=== PATIENT | female | born 1950 | race Caucasian/White ===

== ENCOUNTER → 2018-03-22 | Day surgery (SDC) | payer MEDICARE ==
--- NOTE | 2018-03-13 07:27 | HP ---
CC: Matty Storey NP * PREOPERATIVE HISTORY AND PHYSICAL: DATE OF ADMISSION: 03/22/18 This patient is scheduled for same-day surgery admission by Dr. Massey on Sunday , 03/22/18. DATE OF PREOPERATIVE HISTORY AND PHYSICAL EXAMINATION: 03/12/18. ATTENDING SURGEON: Dr. Kelsey Massey * (dictated by Deirdre Jacobo NP) CHIEF COMPLAINT: Right breast cancer. HISTORY OF PRESENT ILLNESS: The patient is a 67-year-old female recently evaluated by Dr. Massey for right breast cancer. She went for a routine mammogram, which revealed a right breast nodule with architectural distortion at the 9 o'clock position. She had an ultrasound-guided biopsy on 02/22/18, which revealed invasive ductal adenocarcinoma, ER/OH positive, HER2 negative. She then saw her primary care provider, who referred her to Dr. Massey. The patient denies any breast pain or nipple discharge. She denies any family history of breast cancer. Menarche was at age 10; she had hysterectomy at age 38 and had 1 ovary left in. She went through menopause in her mid 40s based on symptoms of hot flashes. In the past, she used both oral contraceptives and hormone replacement therapy for several years, but is not on any hormone replacement at this time. She has never had previous breast biopsy. She has never had radiation to the chest and she does not have any relatives with a history of ovarian cancer. Dr. Massey examined the patient and has recommended mammo-guided needle localization excision of the right breast cancer and sentinel lymph node biopsy as a same-day surgery procedure; she described the nature of the surgical procedure, the rationale for the procedure, the relevant risks and benefits, and today I reviewed the expected postoperative care and recovery. The patient has had a chance to ask questions and stated that she understands the information and is satisfied with the answers given to her questions. She will sign surgical consent on the day of surgery. PAST MEDICAL HISTORY: Significant for hypertension, hyperlipidemia, and asthma. PAST SURGICAL HISTORY: Hysterectomy with 1 ovary left, 1988; tonsillectomy in the 1949s. OB HISTORY: 1, para 0, missed 1. MEDICATIONS: 1. Benazepril 20 mg p.o. daily. 2. Spiriva 1.25 mcg per actuation 2 puffs daily. 3. Symbicort 160/4.5 mcg per actuation 2 puffs b.i.d. 4. Fluticasone 50 mcg per actuation 2 sprays each nostril daily as needed. 5. Montelukast 10 mg p.o. daily. 6. Zyrtec 10 mg p.o. daily. 7. Ventolin inhaler 2 puffs four times a day p.r.n. ALLERGIES: No known drug allergies. FAMILY HISTORY: No known breast cancer or ovarian cancer; no anesthesia complications, bleeding tendencies, or clotting disorders. SOCIAL HISTORY: She is . She exercises routinely with water aerobics. She has never been a smoker. She drinks 1 alcoholic beverage per day. She denies use of other substances. Her brother and [id number] will be with her on the day of surgery. REVIEW OF SYSTEMS: Constitutional: No fevers or chills. No excessive fatigue. Endocrine: No diabetes or thyroid disease. Hematologic: No easy bruising or bleeding. No previous blood transfusions. Respiratory: No dyspnea on exertion. No chronic cough. Cardiovascular: No anginal chest pain or palpitations. Gastrointestinal: No nausea, vomiting, diarrhea, GI bleeding, or constipation. No change in bowel habits. No heartburn. Genitourinary: No dysuria. Musculoskeletal: No back pain or joint pain. Neurologic: No headache or blurred vision or areas of focal weakness or numbness. General: No previous anesthesia complications. No previous history of deep vein thrombosis or pulmonary embolism. PHYSICAL EXAMINATION GENERAL SURVEY: The patient is a 67-year-old, overweight female, in no acute distress. VITAL SIGNS: Height 61 inches, weight 180 pounds, body mass index 34. Blood pressure 128/74, pulse 76 and regular, respiratory rate 16, temperature 98.5 tympanic. HEENT: Benign. NECK: Supple. No cervical lymphadenopathy. No supraclavicular lymphadenopathy. BREASTS: Symmetrical. On the right breast, there is hemangioma in the superior aspect that the patient states has been there since puberty; in the lateral right breast, at the previous biopsy site, there is no erythema or other signs of infection; palpation revealed some thickening of the lateral right breast; otherwise, there are no discrete masses in either breast. Nipples are normal bilaterally. No axillary lymphadenopathy. LUNGS: Breath sounds bilaterally clear and equal. HEART: Regular rate and rhythm. No murmurs or rubs appreciated. ABDOMEN: Active bowel sounds. Soft, nondistended, nontender throughout. No obvious masses, organomegaly, or evidence of umbilical or incisional hernia. There is a well-healed surgical scar in the midline of the lower abdomen. PELVIC: Exam is deferred. RECTAL: Exam is deferred. EXTREMITIES: Warm without edema or skin ulcerations. NEUROLOGIC: Alert and oriented x3. Steady gait. SKIN: Warm, dry, intact. IMPRESSION: Right breast cancer. PLAN: Same-day surgery admission to Dr. Massey's service on 03/22/18, for mammo-guided needle localization excision of right breast cancer and sentinel lymph node biopsy. TOYIN JACOBO, INSTRUCTOR PROGRAMMABLE CONTR[employer]LLERS [id number]/[facility] #: [id number] MTDNolan
[~2018-03-22] MED LIST: Acetaminophen TAB* 325 MG ONE; Acetaminophen TAB* 325 MG PO PRN; Buffered Lidocaine 0.9% SYRIN* 5 ML/SYR SYRINGE INTRADERM ONE; Bupivacaine 0.5% PF 10 ML VIAL INJ ONE; Dexamethasone IV* 4 MG/ML 1 ML (4 MG) ONE; DiMENhydriNATE IV* 50 MG/ML VIAL IV PUSH PRN; DiMENhydriNATE IV* 50 MG/ML VIAL ONE; Famotidine IV* 10 MG/ML 2 ML (20 mg) IV ONE; Famotidine IV* 10 MG/ML 2 ML (20 mg) ONE; HYDROcodone/ACETAMIN 5-325 MG* 1 TAB PO PRN; HYDROmorphone INJ* 1 MG/ML CARPUJECT SYRINGE IV PRN; Heparin VIAL(*) 5000 UNITS/ML VIAL (FIVE THOUSAND) ONE; Ketorolac INJ* 30 MG/ML 1 ML VIAL ONE; Lidocaine 1% INJ* 10 MG/ML 30 ML SDV ONE; Lidocaine 1% MPF wEPI 200,000* 30 ML SDV ONE; Lidocaine 2% PF * 5 ML VIAL ONE; Lidocaine 2.5%/Prilocain 2.5%* 5 GM TUBE ONE; Midazolam* 1 MG/ML 5 ML VIAL (5 MG) ONE; Naloxone* 0.4 MG/ML 1 ML VIAL IV PRN; Propofol* 10 MG/ML 20 ML BTL IV PUSH ONE; ceFAZolin 2 GM PREMIX (*) 2 GM/50 ML BAG IVPB ONE; fentaNYL* 50 MCG/ML 2 ML VIAL (100 MCG VIAL) ONE
--- NOTE | 2018-03-22 13:53 | RAD ---
Indication: Invasive ductal carcinoma. Informed consent was obtained from the patient. Using a lateral approach the radiopaque marker was localized with a 5 cm needle. A Kopan's wire was then placed adjacent to the radiopaque marker. Craniocaudal view demonstrates wire in the expected location. A specimen radiograph demonstrates the localized clip to be within the specimen. IMPRESSION: Successful mammographically guided localization of a surgical clip right breast at approximately 9:00 position.
--- NOTE | 2018-03-22 13:55 | RAD ---
Indication: Invasive ductal carcinoma right breast. Intradermal injection 0.3 mCi of technetium 99m sulfur colloid was injected surrounding the upper outer quadrant of the right areola. The sentinel node was localized. The localized area was then marked with indelible marker. IMPRESSION: SUCCESSFUL LOCALIZATION OF SENTINEL NODES IN THE RIGHT AXILLA.
--- NOTE | 2018-03-22 14:18 | BRIEFOPN ---
Brief Operative Note - Surgery Procedures: Procedures CLOSED ENDOSCOPIC BIOPSY OF LARGE INTESTINE (06/23/13) COLONOSCOPY (07/21/02) OTHER RESP PROCEDURES (11/28/94) 03/22/18 Op Note Pre-op Dx: Right Breast Cancer Post-op Dx: same Procedure: needle localizaiton excision of right breast cancer and sentinel lymph node biopsy. Surgeon: Bryson Asst: None Anesth: General EBL: 10cc Complications: none SCDs on during surgery Abx: given pre-op Pt. tolerated procedure well and was transferred to in a stable condition. CLFoster
[2018-03-22 15:16] VITALS: BP 172/88
--- NOTE | 2018-03-23 07:15 | OP ---
CC: [facility]; Matty Storey NP OPERATIVE REPORT: DATE OF OPERATION: 03/22/18 DATE OF : 46 SURGEON: Kelsey Massey MD NEWS PRODUCTION ASSISTANT: There was no assistant family teacher for this case. PRE-OP DIAGNOSIS: Right breast cancer. POST-OP DIAGNOSIS: Right breast cancer. OPERATIVE PROCEDURE: Needle localization and excision of right breast cancer and sentinel lymph node biopsy. INDICATIONS: Ms. Dyer is a 67-year-old woman, who presented to the office with recently diagnosed breast cancer prompting the plan for surgical intervention. On the morning of surgery, she underwent needle localization and sentinel lymph node localization without difficulty. DESCRIPTION OF PROCEDURE: She was then brought to the operating room. She was placed on the OR tabl e in the supine position and given general anesthesia. The right breast and axilla were prepped and draped in the usual sterile fashion taking care not to dislodge the localizing wire. After infiltrat ing with local anesthetic, a curvilinear elliptical incision encompassing the wire was made. Subcutan eous tissue was divided with electrocautery to completely excise the mass of tissue from around the w pedro. This was marked in the usual fashion and handed off as a specimen. The report eventually came back from Radiology that this specimen contained the abnormality. Meanwhile, hemostasis was achieved with electrocautery. It turned out that the breast excision site was close to the axillary site, so the decision was made to access the sentinel lymph node from the breast incision. Using electrocaut fabio, subcutaneous fat of the axilla was divided until the axillary fat pad was encountered. Then, e navigator helped locate the sentinel lymph node. In situ counts were around 4200 and then using sh lauren and blunt dissection, the sentinel node was excised from the axilla using clips to control small lymphatic and blood vessels that approached the gland. Once it was out, its ex vivo counts were [facility] ked and noted to be around 5300. The axillary bed counts were 10. The sentinel node was handed off. The wound was inspected for hemostasis, which appeared to be adequate and then the breast cavity wa s marked with clips. Additional local was instilled into the cavity and then closure was accomplishe d with 3-0 Vicryl to reapproximate the subcutaneous tissue and the skin was closed with 4-0 Prolene i n a subcuticular fashion. Steri-Strips and a dry sterile dressing were applied. All sponge and inst rument counts were correct. The patient tolerated the procedure well and was transferred to Recovery in a stable condition. [id number]/[facility] #: [id number]
== END | disposition home or self-care (01) ==
LOC: SDS 06:59
PROVIDERS: ATTEND Surgery
DX: C50.911 Malignant neoplasm of unspecified site of right female breast (principal); I10 Essential (primary) hypertension; J45.909 Unspecified asthma, uncomplicated; F41.8 Other specified anxiety disorders; E66.9 Obesity, unspecified
CPT/HCPCS: 78195; 88307; 88342; A9270-GY; A9541; J0690; J1100; J1240; J1644; J1885; J2001; J2250; J2704; J3010

== ENCOUNTER 2018-10-30 17:50 | Emergency (ER) | payer MEDICARE, OTHER ==
[2018-10-30] MEDS ORDERED: Acetaminophen TAB* 325 MG PO ONE (19:05)
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
[2018-10-30] MEDS ORDERED: levETIRAcetam IV* 1,000 MG in NS 0.9% 100 ML* 100 ML IVPB ONE (21:48)
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
[2018-10-30 22:21] LABS: Hematocrit 40 % (35-47); Mean Corpuscular HGB Conc 33 g/dl (31-36); Mean Corpuscular Hemoglobin 28 pg (27-31); Mean Corpuscular Volume 84 fL (80-97); Mean Platelet Volume 7.5 fL (7.4-10.4); Platelet Count 358 10^3/ul (150-450); Red Blood Count 4.71 10^6/ul (4.00-5.40); Red Cell Distribution Width 15 % (10.5-15); White Blood Count 15.1 10^3/ul (3.5-10.8)
[2018-10-30 22:37] LABS: Albumin 3.9 g/dL (3.2-5.2); Albumin/Globulin Ratio 1.5 (1-3); EGFR Non-African American 93.4 (>60); Globulin 2.6 g/dL (2-4); Potassium 3.9 mmol/L (3.5-5.0); Total Bilirubin 0.4 mg/dL (0.2-1.0); Total Protein 6.5 g/dL (6.4-8.9)
[2018-10-30] MEDS ORDERED: Iohexol 300* (CONTRAST) 10 ML SDV IV ONE (22:42)
[2018-10-30] MEDS ORDERED: Ondansetron INJ* 2 MG/ML VIAL IV ONE (23:45)
[2018-10-30] MEDS ORDERED: Morphine VIAL* 10 MG/ML 1 ML VIAL IV ONE (23:45)
[2018-10-30] MEDS ORDERED: Morphine VIAL* 4 MG/ML VIAL (1 ml vial) ONE (23:49)
[2018-10-30] MEDS ORDERED: Morphine VIAL* 4 MG/ML VIAL (1 ml vial) IV ONE (23:51)
[2018-10-30 23:55] VITALS: BP 159/84
== END 2018-10-30 23:06 | disposition short-term general hospital (02) ==
LOC: ED 17:50
DX: I60.9 Nontraumatic subarachnoid hemorrhage, unspecified (principal); E04.1 Nontoxic single thyroid nodule; T14.90XA Injury, unspecified, initial encounter; I10 Essential (primary) hypertension; J45.909 Unspecified asthma, uncomplicated; K21.9 Gastro-esophageal reflux disease without esophagitis; Z85.3 Personal history of malignant neoplasm of breast; V43.52XA Car driver injured in collision with other type car in traffic accident, initial encounter; Y92.410 Unspecified street and highway as the place of occurrence of the external cause
CPT/HCPCS: 36415; 70450; 70486; 71045; 72125; 80053; 85027; 93005; 96374; 96375; 96376; 99285; A9270-GY; J2270; J2405

== ENCOUNTER 2018-11-01 14:51 | Emergency (ER) | payer OTHER ==
[2018-11-01 18:43] LABS: Hematocrit 37 % (35-47); Hemoglobin 12.3 g/dl (12.0-16.0); Mean Corpuscular HGB Conc 34 g/dl (31-36); Mean Corpuscular Hemoglobin 28 pg (27-31); Mean Corpuscular Volume 84 fL (80-97); Mean Platelet Volume 7.5 fL (7.4-10.4); Platelet Count 331 10^3/ul (150-450); Red Blood Count 4.39 10^6/ul (4.00-5.40); Red Cell Distribution Width 15 % (10.5-15)
[2018-11-01] MEDS: Metoclopramide IV* 5 MG/ML 2 ML VIAL IV SLOW PU ONE (18:53)
[2018-11-01] MEDS: NS 0.9% 1000 ML* 1,000 ML IV ONE (18:54)
[2018-11-01 19:03] LABS: Albumin 3.7 g/dL (3.2-5.2); Albumin/Globulin Ratio 1.4 (1-3); Calcium 8.9 mg/dL (8.6-10.3); EGFR Non-African American 93.4 (>60); Globulin 2.7 g/dL (2-4); Potassium 3.6 mmol/L (3.5-5.0); Total Bilirubin 0.4 mg/dL (0.2-1.0); Total Protein 6.4 g/dL (6.4-8.9)
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
[2018-11-01 21:20] VITALS: BP 188/84
== END 2018-11-01 21:15 | disposition home or self-care (01) ==
LOC: ED 14:51
DX: S06.0X9A Concussion with loss of consciousness of unspecified duration, initial encounter (principal); V43.92XA Unspecified car occupant injured in collision with other type car in traffic accident, initial encounter; Y92.410 Unspecified street and highway as the place of occurrence of the external cause; I10 Essential (primary) hypertension
CPT/HCPCS: 36415; 70450; 80053; 85027; 96361; 96374; 99284; J2765

== ENCOUNTER 2019-05-25 02:06 | Observation (INO) | payer MEDICARE, OTHER ==
--- NOTE | 2019-05-25 02:37 | ED ---
HPI Chest Pain - HPI Summary HPI Summary: This is a 68-year-old woman who lives by herself who was well all day. When she went to bed she felt fine but as she was drifting off to sleep she had the abrupt onset of a pressure-like pain in her mid chest that she felt shooting through to her back. She did not have any associated symptoms such as nausea, dizziness, lightheadedness, sweatiness, or shortness of breath. She took some aspirin and some Tums and this seemed to help the chest discomfort although she has some residual discomfort remaining in her back. There has been no abdominal pain. She has a history of treated hypertension, but no other cardiac risk factors. - History of Current Complaint Chief Complaint: EDChestPainROMI Time Seen by Provider: 05/25/19 02:16 Pain Intensity: 2 - Allergy/Home Medications Allergies/Adverse Reactions: Allergies Allergy/AdvReac Type Severity Reaction Status Date / Time No Known Allergies Allergy Verified 11/01/18 14:58 PMH/Surg Hx/FS Hx/Imm Hx Endocrine/Hematology History: Reports: Hx Anemia - r/t prior menstrual problems at age 39 Cardiovascular History: Reports: Hx Hypertension - on meds pt. states controlled Respiratory History: Reports: Hx Asthma - on meds, Other Respiratory Problems/ Disorders - is seeing an asthsma specialist currently to [id number] exercise tolerande GI History: Reports: Hx Gastroesophageal Reflux Disease - uses tumms as needed Musculoskeletal History: Denies: Hx Rheumatoid Arthritis, Hx Osteoporosis Sensory History: Reports: Hx Cataracts - beginning in bilat eyes not surgery, Hx Contacts or Glasses Denies: Hx Hearing Aid Opthamlomology History: Reports: Hx Cataracts - beginning in bilat eyes not surgery, Hx Contacts or Glasses Psychiatric History: Reports: Hx Anxiety - r/t ca dx, Hx Depression - r/t husbands recent (5 months ago) - Cancer History Cancer Type, Location and Year: right breast CA Hx Chemotherapy: No Hx Radiation Therapy: Yes - Surgical History Surgery Procedure, Year, and Place: total hysterectomy 1988 retained one ovary. T AND A 1951. LIPOMA REMOVED 2005 IN OFFICE Hx Anesthesia Reactions: No - Immunization History Immunizations Up to Date: Yes Infectious Disease History: No Infectious Disease History: Denies: Traveled Outside the [place] in Last 30 Days - Family History Known Family History: Positive: Non-Contributory - Social History Alcohol Use: Daily Alcohol Amount: 1 Substance Use Type: Reports: None Smoking Status (MU): Never Smoked Tobacco Have You Smoked in the Last Year: No Review of Systems Constitutional: Negative Eyes: Negative Positive: Chest Pain. Negative: Palpitations Negative: Shortness Of Breath Negative: Abdominal Pain, Vomiting All Other Systems Reviewed And Are Negative: Yes Physical Exam - Summary Physical Exam Summary: General: This is a well-developed, well- nourished morbidly obese woman lying on the stretcher in no apparent distress. The patient does not appear ill or toxic. HEENT:Extraocular movements are intact. Conjunctiva are normal without pallor. Pharynx is clear without exudate or swelling. Dentition is unremarkable. There is no sign of head trauma. Neck: Supple, no adenopathy noted. Lungs: Lungs are clear to auscultation. There are no signs of respiratory distress. Coronary: Peripheral perfusion is good. Heart sounds are regular, a normal S1 and S2 were auscultated. There is no gallop rhythm, nor any pathological sounded murmurs. Abdomen: The abdomen appears obese but otherwise normal and is nondistended. Normoactive bowel sounds are present. On palpation, there is no significant tenderness, nor any guarding or rebound. There is no hepatosplenomegaly, nor any masses. Genitourinary: Deferred Back: Good range of motion is observed. There are no surface abnormalities nor any scoliosis. Extremities: Good range of motion was observed in all 4 extremities. There is no sign of any trauma to the extremities. Neurologic: The patient is awake and alert, speech is fluent in conversation is appropriate. There are no focal motor abnormalities. Cranial nerves are grossly intact. Deep tendon reflexes are 2+ and symmetric. There is no ataxia observed. Psychiatric. The patients affect is felt to be normal and appropriate. Vital Signs On Initial Exam: Initial Vitals Temp Pulse Resp BP Pulse Ox 36.6 C 61 13 170/88 95 05/25/19 02:07 05/25/19 02:07 05/25/19 02:07 05/25/19 02:07 05/25/19 02:07 Diagnostics - Vital Signs Vital Signs Temp Pulse Resp BP Pulse Ox 05/25/19 02:07 36.6 C 61 13 170/88 95 - Laboratory Result Diagrams: 05/25/19 03:47 05/25/19 03:47 Lab Statement: Any lab studies that have been ordered have been reviewed, and results considered in the medical decision making process. - Radiology CXR Radiology Interpretation Completed By: ED Physician Summary of Radiographic Findings: No acute processes, pending official radiology report. - EKG 0209 Cardiac Rate: NL - 61 BPM EKG Rhythm: Sinus Rhythm Summary of EKG Findings: EKG at 0209 revealed NSR at 61 BPM, Q wave in III, AvF. 0349 Cardiac Rate: NL - 63 BPM EKG Rhythm: Sinus Rhythm Summary of EKG Findings: NSR at 63 BPM with inferior Q waves. Re-Evaluation - Re-Evaluation First Eval Re-Evaluation Time: 06:36 Comment: Discussed results with patient. Patient will be admitted to [facility] with dx of chest pain, unstable angina. Patient understands and agrees with this plan. Chest Pain Course/Dx - Course Course Of Treatment: This patient is a 68 year old F presenting to ED with a chief complaint of chest pain. EKG at 0209 revealed NSR at 61 BPM, Q wave in III , AvF. EKG at 0349 revealed NSR at 63 BPM with inferior Q waves. CXR revealed no acute processes, pending official radiology report. Discussed patient case with Dr. Tang, hospitalist, who accepted the patient for admission to [facility]. Patient will be admitted to [facility] with dx of chest pain, unstable angina. Patient understands and agrees with this plan. - Diagnoses Provider Diagnoses: Chest pain, Unstable angina - Provider Notifications Discussed Care Of Patient With: Yaa Tang Time Discussed With Above Provider: 06:33 Instructed by Provider To: Admit As Inpatient - Discussed patient case with Dr. Tang, hospitalist, who accepted the patient for admission to [facility]. Discharge - Sign-Out/Discharge Documenting (check all that apply): Patient Departure - Discharge Patient Received Moderate/Deep Sedation with Procedure: No - Discharge Plan Condition: Fair Disposition: ADMITTED TO [facility] Referrals: aMtty Storey, COMPREHENSIVE OPHTHALMOLOGIST [Primary Care Provider] - - Attestation Statements Document Initiated by Scribe: Yes Documenting Scribe: Jose Guadalupe Gonzalez Provider For Whom Scribe is Documenting (Include Credential): Dino Barker MD Scribe Attestation: IJose Guadalupe, scribed for Dino Barker MD on 05/25/19 at 0645. Status of Scribe Document: Ready
[2019-05-25 03:57] LABS: ABS Eosinophils 0.7 10^3/ul (0-0.6); ABS Lymphocytes 1.8 10^3/ul (1.0-4.8); ABS Monocytes 0.7 10^3/ul (0-0.8); ABS Neutrophils 5.8 10^3/ul (1.5-7.7); Eosinophil % 7.5 %; Hematocrit 38 % (35-47); Hemoglobin 12.9 g/dL (12.0-16.0); Lymphocyte % 20.5 %; Mean Corpuscular HGB Conc 34 g/dL (31-36); Mean Corpuscular Hemoglobin 28 pg (27-31); Mean Corpuscular Volume 83 fL (80-97); Mean Platelet Volume 7.8 fL (7.4-10.4); Nucleated Red Blood Cells % 0.1; Platelet Count 326 10^3/uL (150-450); Red Blood Count 4.58 10^6 /uL (3.70-4.87); Red Cell Distribution Width 15 % (10-15)
[2019-05-25 04:31] LABS: Albumin 3.8 g/dL (3.2-5.2); Albumin/Globulin Ratio 1.5 (1-3); BUN/Creatinine Ratio 25.4 (8-20); Calcium 9.2 mg/dL (8.6-10.3); EGFR Non-African American 93.4 (>60); Globulin 2.6 g/dL (2-4); Potassium 4.1 mmol/L (3.5-5.0); Total Bilirubin 0.3 mg/dL (0.2-1.0); Total Protein 6.4 g/dL (6.4-8.9)
[2019-05-25 06:26] LABS: Troponin I 0.05 ng/mL (<0.04)
[2019-05-25] MEDS ORDERED: Iohexol 350* (CONTRAST) 500 ML MDV IV ONE (06:53)
[2019-05-25] MEDS ORDERED: Magnesium Hydroxide LIQ* 30 ML UDC PO PRN (09:02)
[2019-05-25] MEDS ORDERED: Al Hydrox/Mg Hydrox/Simet LIQ* 30 ML UDC PO PRN (09:02)
[2019-05-25] MEDS ORDERED: Acetaminophen TAB* 325 MG PO PRN (09:02)
[2019-05-25] MEDS ORDERED: Calcium Carbonate CHEW TAB* 500 MG (TUMS) PO PRN (09:05)
[2019-05-25] MEDS ORDERED: Melatonin 3 MG TAB PO PRN (09:10)
--- NOTE | 2019-05-25 10:06 | HP ---
HISTORY AND PHYSICAL: ADDENDUM: In regards to the patient's mediastinal lymphadenopathy, that needs to be followed up. The patient is recommended to follow up with Dr. Yuliet Garsia in regards to her enlarged lymph nodes in her chest. She has had no recent history of upper respiratory infection or respiratory symptoms currently. She is also recommended to follow up with her primary care provider in regards to this. [id number]/[facility] #: [id number] MTDD
[2019-05-25] MEDS: Metoprolol Tartrate TAB* 25 MG PO SCH ×2 (11:14→19:58)
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
[2019-05-25] MEDS: Heparin VIAL(*) 5000 UNITS/ML VIAL (FIVE THOUSAND) SUBCUT SCH ×3 (14:48→20:00)
[2019-05-25] MEDS: Docusate CAP* 100 MG PO SCH (19:58)
[2019-05-25] MEDS ORDERED: Montelukast Sodium TAB* 10 MG PO SCH (21:00)
[2019-05-26] MEDS: Heparin VIAL(*) 5000 UNITS/ML VIAL (FIVE THOUSAND) SUBCUT SCH ×2 (05:33→13:55)
[2019-05-26 07:06] LABS: ABS Eosinophils 0.7 10^3/ul (0-0.6); ABS Lymphocytes 1.7 10^3/ul (1.0-4.8); ABS Monocytes 0.7 10^3/ul (0-0.8); ABS Neutrophils 5.5 10^3/ul (1.5-7.7); Eosinophil % 8.2 %; Hematocrit 42 % (35-47); Hemoglobin 14.1 g/dL (12.0-16.0); Lymphocyte % 19.9 %; Mean Corpuscular HGB Conc 34 g/dL (31-36); Mean Corpuscular Hemoglobin 28 pg (27-31); Mean Corpuscular Volume 83 fL (80-97); Mean Platelet Volume 7.9 fL (7.4-10.4); Platelet Count 365 10^3/uL (150-450); Red Blood Count 5.06 10^6 /uL (3.70-4.87); Red Cell Distribution Width 15 % (10-15); White Blood Count 8.6 10^3/uL (3.5-10.8)
[2019-05-26 07:17] LABS: BUN/Creatinine Ratio 22.7 (8-20); Calcium 9.1 mg/dL (8.6-10.3); EGFR African American 107.1 (>60); EGFR Non-African American 88.5 (>60); HDL Cholesterol 69.6 mg/dL; Potassium 4.1 mmol/L (3.5-5.0)
[2019-05-26] MEDS: Albuterol HFA INHALER* 8 gm MDI INH SCH ×2 (07:33→11:12)
[2019-05-26] MEDS: Mometasone/Formoter 200/5 MDI INH SCH ×2 (07:33→12:23)
[2019-05-26] MEDS: Metoprolol Tartrate TAB* 25 MG PO SCH (07:59)
[2019-05-26] MEDS: Docusate CAP* 100 MG PO SCH (08:44)
[2019-05-26] MEDS ORDERED: Aspirin EC TAB* 325 MG PO SCH (09:00)
[2019-05-26] MEDS ORDERED: CMCS - Anastrozole (NF) 1 MG TAB PO SCH (09:00)
[2019-05-26] MEDS ORDERED: Tiotropium CAP.INH* CAP.INH/18 MCG (USE ORDER SET !) INH SCH (09:00)
[2019-05-26] MEDS ORDERED: Lisinopril TAB* 10 MG PO SCH (09:00)
[2019-05-26] MEDS ORDERED: SPIRIVA INH SCH (09:00)
[2019-05-26] MEDS ORDERED: Spiriva Inhaler DEVICE* 1 EACH DEVICE INH ONE (09:00)
[2019-05-26] MEDS ORDERED: Aspirin 81 mg CHEW TAB* 81 MG TAB.CHEW PO SCH (10:00)
[2019-05-26] MEDS ORDERED: Albuterol HFA INHALER* 8 gm MDI INH SCH (10:45)
[2019-05-26 15:15] VITALS: BP 166/85
[2019-05-26] MEDS ORDERED: Mometasone/Formoter 200/5 MDI INH SCH (21:00)
--- NOTE | 2019-05-26 22:43 | DS ---
CC: Matty Storey NP * DISCHARGE SUMMARY: DATE OF ADMISSION: 05/25/19 DATE OF DISCHARGE: 05/26/19 ATTENDING PHYSICIAN: Dr. Ramonita Quesada * (dictated by PAULA Posey). PRIMARY CARE PROVIDER: Matty Storey NP PRIMARY DIAGNOSES: 1. Hypertensive urgency. 2. Type 2 non-ST elevation myocardial infarction secondary to hypertensive urgency. 3. Hyperlipidemia. SECONDARY DIAGNOSES: 1. Hypertension. 2. History of breast cancer. 3. Asthma. STUDIES WHILE IN THE HOSPITAL: Cardiac stress test negative and termed low risk by Radiology. Chest/thorax CT angiogram on 05/25/19, impression: No pulmonary arterial filling defect to suggest PE. There is peribronchial thickening along the lower lobes bilaterally. Enlarged mediastinal lymph nodes, prominent hilar lymph nodes. 1 cm thyroid nodule. PERTINENT LAB DATA: Troponin 0.05 and then later 0.00, LDL 121. HISTORY OF PRESENT ILLNESS/HOSPITAL COURSE: Xiomara Dyer is a 68-year-old white female with past medical history significant for hypertension, history of breast cancer and asthma, who presented to the emergency department due to chest pain on 05/25/19. Please see admission history and physical dictated by Dr. Marisela Martinez for further information. During her hospital stay, she initially had a negative troponin, but then had a mildly elevated troponin to 0.05 and then returned back down to 0.00. During this time, she never had any EKG changes to suggest new ischemia. Nonetheless, given her symptomatology and her history, stress test was ordered and completed and was negative. Her elevated troponin without EKG changes is likely due to ischemic demand in the setting of hypertensive urgency. During her hospital stay, she was frequently hypertensive including up to 180 systolic, this resolved with administration of metoprolol p.o. and she is not symptomatic of this. On date of discharge, the patient no longer had chest pain and reports she is feeling hungry due to no diet during her stress test. Otherwise, has no complaints. Denies difficulty breathing, dizziness, lightheadedness, abdominal pain, nausea, or vomiting. PHYSICAL EXAMINATION: General: Elderly overweight white female, sitting in a chair, but in no acute distress. Head: Normocephalic, atraumatic. Eyes: PERRLA. Sclerae anicteric. ENT: Mucous membranes moist. Neck: Supple without JVD. Lungs: Clear to auscultation throughout. Cardio: Regular rate and rhythm without murmurs, rubs, or gallops. Abdomen: Soft, nontender, nondistended. Extremities: No clubbing, cyanosis, or edema. Neuro: The patient is alert and oriented x3. No focal deficits. Skin: Skin is warm, dry , and intact. Psych: The patient is pleasant and cooperative. DISCHARGE PLAN: DIET: Regular unrestricted diet. ACTIVITY: The patient may return to normal activity as tolerated. The patient's primary care provider should follow up regarding the lymphadenopathy given the patient's history of breast cancer. The patient is advised to follow up with her primary care provider within 7 to 10 days; however, she will be out of town for the next 2 weeks and is acceptable for out of primary care followup upon her return from out of the vacation. She is advised to every other day check her blood pressure and record it leading up to her primary care followup, so that there may be appropriate data to further adjust her antihypertensive medication. The patient is advised to report to the emergency department if she is again experiencing chest pain, if she develops shortness of breath, if she has changes in vision or any other new or worsening symptoms. Additionally, advised to report to the emergency department if she experienced a blood pressure of 200 /100 when measured. The patient is advised to start the Lipitor due to her finding of hyperlipidemia for primary prevention of cardiovascular event. DISCHARGE MEDICATIONS: 1. Metoprolol tartrate 25 mg p.o. b.i.d. 2. Lipitor 40 mg p.o. daily. Continued home medications: 1. Calcium carbonate 500 mg p.o. 4 times a day p.r.n. 2. Benazepril 20 mg p.o. daily. 3. Melatonin 5 mg p.o. q.p.m. 4. Fluticasone nasal spray 2 sprays both nares q.a.m. 5. Cetirizine 10 mg p.o. daily. 6. Montelukast 10 mg p.o. at bedtime. 7. Arimidex 1 mg p.o. daily. 8. Ventolin 2 puffs inhaled b.i.d. 9. Symbicort 2 puffs inhaled b.i.d. 10. Spiriva 2 puffs inhaled q.a.m. CONDITION ON DISCHARGE: Stable. DISPOSITION: To home. TIME SPENT: Approximately 35 minutes were spent on this discharge; approximately half of this time was spent at the bedside. PAULA POSEY [id number]/[facility]– [place] #: [id number] PAVEL
== END 2019-05-26 16:10 | disposition home or self-care (01) ==
LOC: ED 02:06 → MEDTELE 09:02
PROVIDERS: ADMIT Internal Medicine; ATTEND Internal Medicine
DX: I16.0 Hypertensive urgency (principal); I21.A1 Myocardial infarction type 2; E78.5 Hyperlipidemia, unspecified; Z85.3 Personal history of malignant neoplasm of breast; J45.909 Unspecified asthma, uncomplicated; Z79.899 Other long term (current) drug therapy; Z87.828 Personal history of other (healed) physical injury and trauma
CPT/HCPCS: 36415; 71046; 71275; 78452; 80048; 80053; 80061; 84484; 85025; 93005; 93017; 94640; 99285; A9270-GY; A9502; G0378; J1644; Q9967

== ENCOUNTER 2024-10-06 20:36 | Inpatient (IN) ==
[2024-10-06 22:03] LABS: ABS Lymphocytes 1.2 10^3/uL (1.0-4.8); ABS Monocytes 0.9 10^3/uL (0.0-0.9); ABS Neutrophils 15.4 10^3/uL (1.5-7.6); Eosinophil % 0.1 %; Hemoglobin 11.3 g/dL (11.5-14.3); Lymphocyte % 6.8 %; Mean Corpuscular Hgb Conc 32.3 g/dL (31-36); Mean Corpuscular Volume 80.4 fL (80-97); Mean Platelet Volume 7.3 fL (7.5-11.2); Platelet Count 485 10^3/uL (150-450); Red Blood Count 4.35 10^6/uL (3.63-4.92); Red Cell Distribution Width 17.6 % (12-17); White Blood Count 17.5 10^3/uL (3.8-11.8)
[2024-10-06] MEDS: Lactated Ringers SEPSIS* BAG 1,370 ML IV ONE (22:03)
[2024-10-06] MEDS: Acetaminophen IV 1 GM/100ML 1,000 MG/100 ML BAG IV ONE (22:06)
[2024-10-06] MEDS: Ondansetron 4 mg VIAL 2 MG/ML 2 ml VIAL IV ONE (22:06)
[2024-10-06 22:12] LABS: Activated Partial Thrombo Time 30.5 seconds (26.0-38.0); INR 1.28 (0.85-1.14)
[2024-10-06 22:34] LABS: Albumin 3.6 g/dL (3.2-5.2); Albumin/Globulin Ratio 1.6 (1-3); C Reactive Protein 263.89 mg/L (<8.01); Calcium 8.8 mg/dL (8.6-10.3); Creatinine, Serum 0.66 mg/dL (0.51-0.95); Globulin 2.3 g/dL (2-4); Potassium 3.6 mmol/L (3.5-5.0); Total Bilirubin 0.9 mg/dL (0.2-1.0); Total Protein 5.9 g/dL (6.4-8.9); eGFR CKD-EPI 91.4 (>60)
[2024-10-06] MEDS ORDERED: Vancomycin 1,000 MG in NS 0.9% 250 ml 250 ML IVPB SCH (23:00)
[2024-10-06] MEDS: Cefepime 2 GM in Dextrose 2 GM/50 ML BAG IV ONE (23:00)
[2024-10-06 23:23] LABS: High Sensitivity Troponin 1 Hr 39 pg/mL (<15)
[2024-10-06] MEDS: Vancomycin 1,000 MG - ED ONCE IVPB ONE (23:30)
[2024-10-07] MEDS: Piperacillin/Tazobac 3.375 BAG 3.375 GM/100 ML BAG IV ONE (04:48)
[2024-10-07] MEDS: Iohexol 300 (CONTRAST) 10 ML SDV IV ONE (04:49)
[2024-10-07] MEDS ORDERED: Zosyn per Pharmacy NOTE FOLLOW UP SCH (05:00)
[2024-10-07] MEDS ORDERED: Vancomycin per Pharmacy 1 EA NOTE FOLLOW UP SCH (05:00)
[2024-10-07 07:54] LABS: Urine Appearance Clear; Urine Bacteria Absent /HPF (Absent); Urine Bilirubin Negative (Negative); Urine Blood Negative (Negative); Urine Color Yellow; Urine Glucose Negative (Negative); Urine Ketones 1+ (Negative); Urine Nitrite Negative (Negative); Urine Protein 1+ (>=30 mg/dL) (Negative); Urine Red Blood Cell Absent /HPF (0-Trace); Urine Specific Gravity >1.050 (1.002-1.030); Urine Squamous Epithelial Cell Present /HPF (Absent); Urine Urobilinogen Negative (Negative); Urine White Blood Cell 2+(11-20/hpf) /HPF (0-Trace); Urine pH 6.5 (5.0-8.0)
[2024-10-07] MEDS: ZOSYN 3.375 GM Q8H per EXTENDED INFUSION IV SCH (09:52)
[2024-10-07] MEDS ORDERED: Piperacillin/Tazobac 3.375 BAG 3.375 GM/100 ML BAG IV ONE (10:48)
[2024-10-07 12:55] LABS: ABS Eosinophils 0.2 10^3/uL (0.0-0.5); ABS Lymphocytes 0.8 10^3/uL (1.0-4.8); ABS Monocytes 0.7 10^3/uL (0.0-0.9); ABS Neutrophils 10.5 10^3/uL (1.5-7.6); Hematocrit 32.4 % (35-45); Hemoglobin 10.6 g/dL (11.5-14.3); Lymphocyte % 6.5 %; Mean Corpuscular Hemoglobin 26.5 pg (27-33); Mean Corpuscular Hgb Conc 32.8 g/dL (31-36); Mean Corpuscular Volume 80.7 fL (80-97); Mean Platelet Volume 7.3 fL (7.5-11.2); Platelet Count 386 10^3/uL (150-450); Red Blood Count 4.01 10^6/uL (3.63-4.92); Red Cell Distribution Width 17.4 % (12-17); White Blood Count 12.2 10^3/uL (3.8-11.8)
[2024-10-07 14:13] LABS: Calcium 8.1 mg/dL (8.6-10.3); Creatinine, Serum 0.54 mg/dL (0.51-0.95); Magnesium 1.7 mg/dL (1.9-2.7); Potassium 3.9 mmol/L (3.5-5.0)
[2024-10-07] MEDS: Lactated Ringers 1000 ml BAG 1,000 ML IV SCH (15:27)
[2024-10-07] MEDS: Vancomycin 750 MG in NS 0.9% 250 ML IVPB SCH (15:27)
[2024-10-07] MEDS: Acetaminophen IV 1 GM/100ML 1,000 MG/100 ML BAG IV ONE (19:21)
[2024-10-08] MEDS: Vancomycin 750 MG in NS 0.9% 250 ML IVPB SCH (02:54)
[2024-10-08] MEDS: ZOSYN 3.375 GM Q8H per EXTENDED INFUSION IV SCH (05:09)
[2024-10-08 05:58] LABS: ABS Eosinophils 0.4 10^3/uL (0.0-0.5); ABS Lymphocytes 1.2 10^3/uL (1.0-4.8); ABS Monocytes 0.9 10^3/uL (0.0-0.9); ABS Neutrophils 8.6 10^3/uL (1.5-7.6); Eosinophil % 3.4 %; Hematocrit 29.9 % (35-45); Hemoglobin 9.7 g/dL (11.5-14.3); Lymphocyte % 10.4 %; Mean Corpuscular Hemoglobin 26.1 pg (27-33); Mean Corpuscular Hgb Conc 32.5 g/dL (31-36); Mean Corpuscular Volume 80.4 fL (80-97); Mean Platelet Volume 7.4 fL (7.5-11.2); Platelet Count 385 10^3/uL (150-450); Red Blood Count 3.72 10^6/uL (3.63-4.92)
[2024-10-08 06:29] LABS: Calcium 8.1 mg/dL (8.6-10.3); Creatinine, Serum 0.52 mg/dL (0.51-0.95); Potassium 3.3 mmol/L (3.5-5.0); eGFR CKD-EPI 96.8 (>60)
[2024-10-08] MEDS ORDERED: Albuterol HFA INHALER 8 gm MDI INH PRN (07:25)
[2024-10-08 07:43] LABS: Magnesium 1.5 mg/dL (1.9-2.7)
[2024-10-08] MEDS: Magnesium Sulfate 2 gm BAG 2 GM/50 ML BAG IVPB ONE (08:02)
[2024-10-08] MEDS: Potassium Chloride LIQUID 20 MEQ/15 ML LIQUID PO ONE (08:05)
[2024-10-08] MEDS: Magnesium Sulfate IV 1GM/100ML 1 GM/100 ML BAG IV ONE ×2 (09:09→11:29)
[2024-10-08] MEDS: CMCS:FLUTICAS/UMECLI/VILANT 100-62.5-25 MDI (NF) INH SCH (09:30)
[2024-10-08] MEDS: Vancomycin Trough Check NOTE FOLLOW UP ONE (15:43)
[2024-10-08] MEDS: fentaNYL 100 mcg/2 ml 50 MCG/ML VIAL ONE (18:11)
[2024-10-08] MEDS: Calcium Carb (TUMS) 500 mg CHEW TAB PO ONE (20:14)
[2024-10-09 08:44] LABS: ABS Eosinophils 0.5 10^3/uL (0.0-0.5); ABS Lymphocytes 1.4 10^3/uL (1.0-4.8); Eosinophil % 4.9 %; Hemoglobin 9.9 g/dL (11.5-14.3); Mean Corpuscular Hemoglobin 27.1 pg (27-33); Mean Corpuscular Volume 79.8 fL (80-97); Mean Platelet Volume 7.3 fL (7.5-11.2); Platelet Count 379 10^3/uL (150-450); Red Blood Count 3.64 10^6/uL (3.63-4.92); Red Cell Distribution Width 17.2 % (12-17); White Blood Count 10.9 10^3/uL (3.8-11.8)
[2024-10-09 09:02] LABS: Calcium 7.9 mg/dL (8.6-10.3); Creatinine, Serum 0.54 mg/dL (0.51-0.95); Magnesium 1.8 mg/dL (1.9-2.7); Potassium 3.2 mmol/L (3.5-5.0)
[2024-10-09] MEDS: hydrALAZINE 20 mg/ml 1 ML Vial IV IV SLOW PU PRN (09:43)
[2024-10-09] MEDS: Magnesium Sulfate IV 1GM/100ML 1 GM/100 ML BAG IV ONE (10:31)
[2024-10-09] MEDS: Potassium Chlor 20 meq TAB.ER PO ONE (11:01)
[2024-10-09] MEDS: KCL 20 MEQ/100 ML IVPREMIX 20 MEQ/100 ML BAG IV ONE (11:30)
[2024-10-09] MEDS: Heparin 5000 UNITS/ML 1 mL VIAL SUBCUT SCH (22:19)
[2024-10-10 07:26] LABS: ABS Eosinophils 0.5 10^3/uL (0.0-0.5); ABS Lymphocytes 1.7 10^3/uL (1.0-4.8); ABS Monocytes 1.1 10^3/uL (0.0-0.9); Hematocrit 31.8 % (35-45); Hemoglobin 10.8 g/dL (11.5-14.3); Lymphocyte % 16.7 %; Mean Corpuscular Hemoglobin 26.9 pg (27-33); Mean Corpuscular Hgb Conc 33.9 g/dL (31-36); Mean Corpuscular Volume 79.4 fL (80-97); Mean Platelet Volume 7.3 fL (7.5-11.2); Platelet Count 471 10^3/uL (150-450); Red Blood Count 4.01 10^6/uL (3.63-4.92); Red Cell Distribution Width 17.2 % (12-17); White Blood Count 10.4 10^3/uL (3.8-11.8)
[2024-10-10 07:43] LABS: Calcium 8.4 mg/dL (8.6-10.3); Creatinine, Serum 0.56 mg/dL (0.51-0.95); Magnesium 1.7 mg/dL (1.9-2.7); Potassium 3.7 mmol/L (3.5-5.0); eGFR CKD-EPI 95.1 (>60)
[2024-10-10] MEDS: Magnesium Sulfate 2 gm BAG 2 GM/50 ML BAG IVPB ONE (13:35)
[2024-10-10 15:40] LABS: Creatinine, Serum 0.53 mg/dL (0.51-0.95); Vancomycin Trough 12.9 mcg/mL; eGFR CKD-EPI 96.4 (>60)
[2024-10-10] MEDS: Vancomycin Trough Check NOTE FOLLOW UP ONE (15:54)
[2024-10-11 08:02] LABS: ABS Basophils 0.1 10^3/uL (0.0-0.1); ABS Eosinophils 0.6 10^3/uL (0.0-0.5); ABS Lymphocytes 1.9 10^3/uL (1.0-4.8); ABS Monocytes 1.1 10^3/uL (0.0-0.9); ABS Neutrophils 7.4 10^3/uL (1.5-7.6); Eosinophil % 5.5 %; Hematocrit 29.5 % (35-45); Hemoglobin 10.1 g/dL (11.5-14.3); Mean Corpuscular Hemoglobin 27.1 pg (27-33); Mean Corpuscular Hgb Conc 34.2 g/dL (31-36); Mean Corpuscular Volume 79.3 fL (80-97); Mean Platelet Volume 7.1 fL (7.5-11.2); Platelet Count 461 10^3/uL (150-450); Red Blood Count 3.71 10^6/uL (3.63-4.92); White Blood Count 11.1 10^3/uL (3.8-11.8)
[2024-10-11 08:17] LABS: Calcium 8.1 mg/dL (8.6-10.3); Creatinine, Serum 0.57 mg/dL (0.51-0.95); Magnesium 1.8 mg/dL (1.9-2.7); Potassium 3.4 mmol/L (3.5-5.0); eGFR CKD-EPI 94.7 (>60)
[2024-10-11] MEDS: Potassium Chloride LIQUID 20 MEQ/15 ML LIQUID PO ONE (10:59)
[2024-10-11] MEDS: Magnesium Sulfate 2 gm BAG 2 GM/50 ML BAG IVPB ONE (11:00)
[2024-10-11] MEDS: KCL 20 MEQ/100 ML IVPREMIX 20 MEQ/100 ML BAG IV ONE (12:39)
[2024-10-12 06:39] LABS: ABS Eosinophils 0.8 10^3/uL (0.0-0.5); ABS Lymphocytes 1.9 10^3/uL (1.0-4.8); ABS Monocytes 1.1 10^3/uL (0.0-0.9); ABS Neutrophils 7.3 10^3/uL (1.5-7.6); Hemoglobin 9.8 g/dL (11.5-14.3); Lymphocyte % 16.8 %; Mean Corpuscular Hemoglobin 26.8 pg (27-33); Mean Corpuscular Hgb Conc 33.8 g/dL (31-36); Mean Corpuscular Volume 79.2 fL (80-97); Mean Platelet Volume 7.2 fL (7.5-11.2); Platelet Count 459 10^3/uL (150-450); Red Blood Count 3.66 10^6/uL (3.63-4.92); Red Cell Distribution Width 17.3 % (12-17); White Blood Count 11.1 10^3/uL (3.8-11.8)
[2024-10-12 07:14] LABS: Calcium 8.2 mg/dL (8.6-10.3); Creatinine, Serum 0.63 mg/dL (0.51-0.95); Magnesium 1.8 mg/dL (1.9-2.7); Potassium 3.6 mmol/L (3.5-5.0); eGFR CKD-EPI 92.5 (>60)
[2024-10-12] MEDS: Potassium Chloride LIQUID 20 MEQ/15 ML LIQUID PO ONE (10:16)
[2024-10-12] MEDS: Magnesium Sulfate 2 gm BAG 2 GM/50 ML BAG IVPB ONE (10:33)
[2024-10-13] MEDS: Enalaprilat IV 1.25 mg/ml 2 ml VIAL (2.5 MG) IV ONE (01:27)
[2024-10-13 06:51] LABS: C Reactive Protein 29.88 mg/L (<8.01); Calcium 8.4 mg/dL (8.6-10.3); Creatinine, Serum 0.57 mg/dL (0.51-0.95); Magnesium 1.8 mg/dL (1.9-2.7); Potassium 3.6 mmol/L (3.5-5.0); eGFR CKD-EPI 94.7 (>60)
[2024-10-13] MEDS: Magnesium Sulfate 2 gm BAG 2 GM/50 ML BAG IVPB ONE (10:24)
[2024-10-13] MEDS: Fluticasone NASAL SPRAY 50MCG 16 gm SPRAY BTL BOTH NARES SCH (11:46)
[2024-10-13 15:14] LABS: Creatinine, Serum 0.73 mg/dL (0.51-0.95); Vancomycin Trough 13.3 mcg/mL; eGFR CKD-EPI 85.7 (>60)
[2024-10-13] MEDS: Vancomycin Trough Check NOTE FOLLOW UP ONE (16:16)
[2024-10-13] MEDS: Amoxicillin/Clavul 875/125 TAB (Augmentin 875 tab) PO SCH (20:35)
[2024-10-14 06:21] LABS: Creatinine, Serum 0.61 mg/dL (0.51-0.95); eGFR CKD-EPI 93.2 (>60)
[2024-10-14 09:19] VITALS: BP 147/67
== END 2024-10-14 13:15 | disposition home or self-care (01) | DRG 862 ==
LOC: ED 20:36 → EDHOLD 10-07 04:39 → SUATTDRO 10-07 04:39 → MED 10-07 16:28
PROVIDERS: ADMIT Internal Medicine; ATTEND Student in an Organized Health Care Education/Training Program